=== PATIENT | female | born 1960 | race Caucasian/White ===

== ENCOUNTER 2019-01-13 18:28 | Emergency (ER) | payer OTHER ==
[~2019-01-13] VITALS: Ht 162.6 cm; Wt 63.0 kg
[~2019-01-13 18:28] MED LIST: ATORVASTATIN CA40 MG; CATAFLAM50 MG PO; ORPH100T PO; SYNTHROID50 MCG; TIROSINT25 MCG; ZOCOR20 MG
== END 2019-01-13 21:07 | disposition home or self-care (01) ==
LOC: ER 18:28
DX: M75.82 Other shoulder lesions, left shoulder (principal)

== ENCOUNTER 2023-12-03 18:08 | Emergency (ER) | payer OTHER ==
[~2023-12-03] VITALS: Ht 162.6 cm; Wt 67.1 kg
[2023-12-03] MEDS ORDERED: SYNTHROID88 MCG (18:20)
[2023-12-03] MEDS ORDERED: KETOROLAC TROMETHAMINE 60 MG VIAL IM ONE (20:00)
== END 2023-12-03 22:04 | disposition home or self-care (01) ==
LOC: ER 18:08
DX: S50.02XA Contusion of left elbow, initial encounter (principal); S80.212A Abrasion, left knee, initial encounter; S80.211A Abrasion, right knee, initial encounter; T07.XXXA Unspecified multiple injuries, initial encounter; W19.XXXA Unspecified fall, initial encounter; Y93.89 Activity, other specified; Y92.89 Other specified places as the place of occurrence of the external cause; Y99.8 Other external cause status; I10 Essential (primary) hypertension; E03.8 Other specified hypothyroidism